=== PATIENT | male | born 1945 | race Caucasian/White ===

== ENCOUNTER 2017-02-04 09:54 | Emergency (ER) | payer MEDICARE ==
[~2017-02-04] VITALS: Ht 182.9 cm; Wt 93.1 kg
[2017-02-04] MEDS ORDERED: SODIUM CHLORIDE FLUSH 3 ML SYR IV PRN (10:20)
[2017-02-04] MEDS ORDERED: SODIUM CHLORIDE FLUSH 10 ML SYR IV PRN (10:20)
[2017-02-04 10:37] LABS: BASOPHILS % (AUTO) 1 % (0-2); EOSINOPHILS # (AUTO) 0.1 10^3uL; EOSINOPHILS % (AUTO) 1 % (0-4); LYMPHOCYTES # (AUTO) 1.9 X10^3; MEAN CORPUSCULAR HEMOGLOBIN 30.3 PG (26.0-34.0); MEAN CORPUSCULAR HGB CONC 33.8 g/dL (31.0-37.0); MEAN CORPUSCULAR VOLUME 90 FL (80-100); MEAN PLATELET VOLUME 11.3 FL (6.0-9.5); MONOCYTES # (AUTO) 0.7 X10^3; MONOCYTES % (AUTO) 10 % (3-11); NEUTROPHILS # (AUTO) 3.9 X10^3; NEUTROPHILS % (AUTO) 60 % (51-67); PLATELET COUNT 154 10^3uL (150-450); WHITE BLOOD COUNT 6.55 10^3uL (4.0-11.0)
[2017-02-04] MEDS ORDERED: [UNRECOGNIZED DRUG - OTHER] PO (10:49)
[2017-02-04 10:53] LABS: ALBUMIN 4.2 g/dL (3.4-5.0); ALKALINE PHOSPHATASE 72 U/L (38-126); ANION GAP 15.8 MEQ/L (3-15); BUN/CREATININE RATIO 19 (10-20); CALCULATED IONIZED CALCIUM 3.7 mg/dL (3.8-4.6); TOTAL PROTEIN 7.7 g/dL (6.4-8.5)
--- NOTE | 2017-02-04 10:57 | Diagnostic Imaging Report ---
INDICATION: Chest and arm pain. EXAMINATION: Chest dated 02/04/2017. COMPARISON: 05/12/2003. FINDINGS: Frontal chest demonstrates mild cardiomegaly. Pulmonary vasculature is unremarkable. Lungs and pleural spaces demonstrate no evidence for acute abnormalities. IMPRESSION: No acute process. Dictated by: Dictated on workstation # [id number]
--- NOTE | 2017-02-04 11:17 | NUR ---
Services Tech paged for
--- NOTE | 2017-02-04 11:59 | NUR ---
DR MEDRANO IS THE ATOMIC PHYSICS PROFESSOR THAT PT WILL BE SEEING, HE CALLS TO SPEAK WITH DR RUSHING AT THIS TIME.
[2017-02-04 14:02] VITALS: BP 153/90
== END 2017-02-04 12:42 | disposition home or self-care (01) ==
LOC: ED 09:58
DX: I20.8 Other forms of angina pectoris (principal)
CPT/HCPCS: 36415; 71010; 80053; 84484; 85025; 93005; 93010; 99284; 99285